=== PATIENT | male | born 1965 | race Caucasian/White ===

== ENCOUNTER 2016-11-19 19:40 | Emergency (ER) | payer SELFPAY ==
[2016-11-19 20:07] VITALS: BP 126/84; PULSE 72; RESP 16; TEMP 98.6; O2SAT 99; BMI 28.1
--- NOTE | 2016-11-19 20:31 | ED PDOC ---
Arrival/HPI - General Chief Complaint: Lower Extremity Problem/Injury Time Seen by Provider: 11/19/16 19:53 Historian: Patient - History of Present Illness Narrative History of Present Illness (Text): 11/19/16 20:30 51yr old male presents today with a one-day history of right fourth toe pain. Patient states yesterday he was walking and he hit his foot into the wall sustaining an injury to the right fourth toe. Patient states he has pain if he tries to apply pressure onto the toe. He is complaining of pain with range of motion of the foot. No medications have been taken for pain at home. Denies numbness weakness or tingling in the extremity. No other complaints Time/Duration: Other (1 day) Symptom Onset: Sudden Symptom Course: Unchanged Quality: Aching Severity Level: 5 Past Medical History - Provider Review Nursing Documentation Reviewed: Yes - Travel History Have you recently traveled outside [place] w/in the past 3 mons?: No - Past History Past History: No Previous - Infectious Disease Hx of Infectious Diseases: None - Tetanus Immunization Tetanus Immunization: Unknown - Cardiac Hx Cardiac Disorders: No - Pulmonary Hx Respiratory Disorders: No - Neurological Hx Neurological Disorder: No - HEENT Hx HEENT Disorder: No - Renal Hx Renal Disorder: No - Endocrine/Metabolic Hx Diabetes Mellitus Type 2: Yes - Hematological/Oncological Hx Blood Disorders: No - Integumentary Hx Dermatological Disorder: No - Musculoskeletal/Rheumatological Hx Musculoskeletal Disorders: No - Gastrointestinal Hx Gastrointestinal Disorders: No - Genitourinary/Gynecological Hx Genitourinary Disorders: No - Psychiatric Hx Depression: No Hx Emotional Abuse: No Hx Physical Abuse: No Hx Substance Use: No - Anesthesia Hx Anesthesia: No - Suicidal Assessment Feels Threatened In Home Enviroment: No Family/Social History - Physician Review Nursing Documentation Reviewed: Yes Family/Social History: Unknown Family HX Smoking Status: Never Smoked Hx Alcohol Use: No Hx Substance Use: No Hx Substance Use Treatment: No Allergies/Home Meds Allergies/Adverse Reactions: Allergies No Known Allergies Allergy (Verified 05/28/13 09:21) Home Medications: Home Meds Medication Instructions Recorded Confirmed metFORMIN [glucOPHAGE] 500 mg PO BID 11/19/16 11/19/16 Review of Systems - Review of Systems Constitutional: absent: Fatigue, Fevers Respiratory: absent: SOB, Cough Cardiovascular: absent: Chest Pain, Palpitations Gastrointestinal: absent: Abdominal Pain, Nausea, Vomiting Musculoskeletal: Arthralgias. absent: Back Pain, Neck Pain Skin: absent: Rash, Pruritis Neurological: absent: Headache, Dizziness Physical Exam Vital Signs Reviewed: Yes Vital Signs Temp Pulse Resp BP Pulse Ox 11/19/16 20:01 98.6 F 72 16 126/84 99 Temperature: Afebrile Blood Pressure: Normal Pulse: Regular Respiratory Rate: Normal Appearance: Positive for: Well-Appearing, Non-Toxic, Comfortable Pain Distress: None Mental Status: Positive for: Alert and Oriented X 3 Finger Stick Blood Glucose: 107 - Systems Exam Head: Present: Atraumatic Neck: Present: Normal Range of Motion Respiratory/Chest: Present: Clear to Auscultation, Good Air Exchange. No: Respiratory Distress, Accessory Muscle Use Cardiovascular: Present: Regular Rate and Rhythm, Normal S1, S2. No: Murmurs Lower Extremity: Present: Tenderness (right foot; + ttp over 4th toe; + minimal edema, no erythema; no ecchymosis; limited rom of toe with pain; sensation and distal pulses intact; cap refill <2. ), Swelling, Neurovascularly Intact, Capillary Refill < 2 s. No: Normal ROM, Erythema, Deformity Skin: Present: Warm, Dry Psychiatric: Present: Alert, Oriented x 3 Medical Decision Making ED Course and Treatment: 11/19/16 20:35 Patient is nontoxic well-appearing in no distress her vital signs are stable. XRAY TOE; + fx 4th toe proximal phalanx TEVIN TAPE TOE I discussed all results in depth with the patient and advised follow-up with the primary care physician/orthopedist within the next 2 days. I advised immediate return if symptoms worsen or persist or if new concerning symptoms develop. IMPRESSION; FRACTURE, TOE Motrin every 6 hours as needed for pain tramadol; one tablet or 6 hours as needed for moderate to severe pain: May cause drowsiness Follow up with primary care physician within the next 2 days Follow up with the orthopedist/assistant tennis coach within the next 2 days Return if symptoms worsen persist or if new symptoms develop - RAD Interpretation Radiology Orders: 11/19/16 20:07 FOOT RIGHT 4TH DIGIT (TOE) [RAD] Stat - Medication Orders Current Medication Orders: Discontinued Medications Ibuprofen (Motrin Tab) 600 mg PO STAT STA Stop: 11/19/16 20:09 Last Admin: 11/19/16 20:11 Dose: 600 mg Disposition/Present on Arrival - Present on Arrival Any Indicators Present on Arrival: No History of DVT/PE: No History of Uncontrolled Diabetes: No Urinary Catheter: No History of Decub. Ulcer: No History Surgical Site Infection Following: None - Disposition Have Diagnosis and Disposition been Completed?: Yes Diagnosis: Fractured toe Disposition: HOME/ ROUTINE Disposition Time: 21:12 Patient Plan: Discharge Condition: GOOD Discharge Instructions (ExitCare): Toe Fracture (ED) Additional Instructions: Motrin every 6 hours as needed for pain tramadol; one tablet or 6 hours as needed for moderate to severe pain: May cause drowsiness Follow up with primary care physician within the next 2 days Follow up with the orthopedist/assistant tennis coach within the next 2 days Return if symptoms worsen persist or if new symptoms develop Prescriptions: Ibuprofen [Motrin] 600 mg PO Q6H PRN #20 tab PRN Reason: pain/fever reduction traMADol [Ultram] 50 mg PO Q6H PRN #8 tab PRN Reason: moderate to severe pain Referrals: Radha Trujillo MD [Primary Care Provider] - Follow up with primary Ozzie Jimenez DPM [Staff Provider] - Follow up with primary Sam Escobar DO [Staff Provider] - Follow up with primary
--- NOTE | 2016-11-20 10:06 | RAD ---
PROCEDURE: Right 4th toe 11/19/2016 HISTORY: jammed right 4th toe COMPARISON: No prior study available comparison TECHNIQUE: Three-view cone-down views of the right 4th toe performed FINDINGS: Current study reveals a diagonal minimally displaced fracture traversing the shaft of the proximal phalanx 4th toe. Surrounding soft tissue swelling. No other fractures are identified. The there may be hammertoe deformities of the 2nd through 4th digits. IMPRESSION: Diagonal/oblique fracture traversing the proximal phalanx 4th toe right foot note this report was placed in PA review folder for followup
== END 2016-11-19 21:28 | disposition home or self-care (01) ==
LOC: ED 19:40
DX: S92.511A Displaced fracture of proximal phalanx of right lesser toe(s), initial encounter for closed fracture (principal); W22.01XA Walked into wall, initial encounter; Y93.01 Activity, walking, marching and hiking; Y92.9 Unspecified place or not applicable

== ENCOUNTER 2018-02-17 10:19 | Emergency (ER) | payer OTHER ==
--- NOTE | 2018-02-17 10:56 | ED PDOC ---
Arrival/HPI - General Time Seen by Provider: 02/17/18 10:41 Historian: Patient - History of Present Illness Narrative History of Present Illness (Text): 02/17/18 10:55 52 y/o M with no significant past medical history presenting to the Emergency Department complaining of left elbow pain and stiffness ongoing for 1 week. 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 Patient denies any fever, chills, chest pain, shortness of breath, nausea, vomiting, diarrhea, back pain, neck pain, headache, dizziness, or any other complaints. Time/Duration: 1 week Symptom Onset: Gradual Symptom Course: Unchanged Activities at Onset: Light Context: Home Past Medical History - Provider Review Nursing Documentation Reviewed: Yes - Past History Past History: No Previous - Infectious Disease Hx of Infectious Diseases: None - Tetanus Immunization Tetanus Immunization: Unknown - Cardiac Hx Cardiac Disorders: No - Pulmonary Hx Respiratory Disorders: No - Neurological Hx Neurological Disorder: No - HEENT Hx HEENT Disorder: No - Renal Hx Renal Disorder: No - Endocrine/Metabolic Hx Diabetes Mellitus Type 2: Yes - Hematological/Oncological Hx Blood Disorders: No - Integumentary Hx Dermatological Disorder: No - Musculoskeletal/Rheumatological Hx Musculoskeletal Disorders: No - Gastrointestinal Hx Gastrointestinal Disorders: No - Genitourinary/Gynecological Hx Genitourinary Disorders: No - Psychiatric Hx Depression: No Hx Emotional Abuse: No Hx Physical Abuse: No Hx Substance Use: No - Anesthesia Hx Anesthesia: No - Suicidal Assessment Feels Threatened In Home Enviroment: No Family/Social History - Physician Review Nursing Documentation Reviewed: Yes Family/Social History: Unknown Family HX Smoking Status: Never Smoked Hx Alcohol Use: No Hx Substance Use: No Hx Substance Use Treatment: No Allergies/Home Meds Allergies/Adverse Reactions: Allergies No Known Allergies Allergy (Verified 02/17/18 10:51) Home Medications: Home Meds Medication Instructions Recorded Confirmed metFORMIN [glucOPHAGE] 500 mg PO BID 11/19/16 02/17/18 Review of Systems - Physician Review All systems were reviewed & negative as marked: Yes - Review of Systems Constitutional: Normal Eyes: Normal ENT: Normal Respiratory: Normal. absent: SOB, Cough Cardiovascular: Normal. absent: Chest Pain Gastrointestinal: Normal. absent: Abdominal Pain, Diarrhea, Nausea, Vomiting Genitourinary Male: Normal. absent: Dysuria, Frequency Musculoskeletal: Other (left elbow pain and stiffness). absent: Back Pain, Neck Pain Skin: Normal. absent: Rash Neurological: Normal. absent: Headache, Dizziness Endocrine: Normal Hemo/Lymphatic: Normal Psychiatric: Normal Physical Exam Temperature: Afebrile Blood Pressure: Normal Pulse: Regular Respiratory Rate: Normal Appearance: Positive for: Well-Appearing, Non-Toxic, Comfortable Pain Distress: Mild Mental Status: Positive for: Alert and Oriented X 3 - Systems Exam Head: Present: Atraumatic, Normocephalic Pupils: Present: PERRL Extroacular Muscles: Present: EOMI Conjunctiva: Present: Normal Mouth: Present: Moist Mucous Membranes Neck: Present: Normal Range of Motion Respiratory/Chest: Present: Clear to Auscultation, Good Air Exchange. No: Respiratory Distress, Accessory Muscle Use Cardiovascular: Present: Regular Rate and Rhythm, Normal S1, S2. No: Murmurs Abdomen: No: Tenderness, Distention, Peritoneal Signs Back: Present: Normal Inspection Upper Extremity: Present: NORMAL PULSES, Swelling (medial surface of left elbow), Capillary Refill < 2s. No: Cyanosis, Edema Lower Extremity: Present: Normal Inspection. No: Edema Neurological: Present: GCS=15, CN II-XII Intact, Speech Normal Skin: Present: Warm, Dry, Normal Color. No: Rashes Psychiatric: Present: Alert, Oriented x 3, Normal Insight, Normal Concentration Medical Decision Making ED Course and Treatment: 02/17/18 10:57 Impression: 52 year old male presents to the Emergency department complaining of left elbow pain and stiffness. Plan: -- Xray left elbow -- Ibuprofen -- Reassess and disposition Progress Notes: 02/18/18 13:02 Elbow XR reviewed with no posterior or anterior fat pat seen on imaging. Patient updated on details and advised to continue supportive management at home. He will refrain from lifting heavy items for the next couple of days. Scripts provided. Referral to clinic given. He is stable for discharge. - Scribe Statement The provider has reviewed the documentation as recorded by the Scribabraham Bolton All medical record entries made by the Scribe were at my direction and personally dictated by me. I have reviewed the chart and agree that the record accurately reflects my personal performance of the history, physical exam, medical decision making, and the department course for this patient. I have also personally directed, reviewed, and agree with the discharge instructions and disposition. Disposition/Present on Arrival - Present on Arrival Any Indicators Present on Arrival: No History of DVT/PE: No History of Uncontrolled Diabetes: No Urinary Catheter: No History Surgical Site Infection Following: None - Disposition Have Diagnosis and Disposition been Completed?: Yes Diagnosis: Elbow contusion Disposition: HOME/ ROUTINE Disposition Time: 13:02 Condition: STABLE Discharge Instructions (ExitCare): Contusion (DC) Prescriptions: Ibuprofen [Motrin Tab] 600 mg PO Q6H PRN 6 Days #24 tab PRN Reason: Pain, Moderate (4-7) Referrals: Radha Trujillo MD [Primary Care Provider] - Follow up with primary Forms: WORK NOTE
[2018-02-17 10:59] VITALS: RESP 18; BMI 28.8
[2018-02-17 13:13] VITALS: BP 129/86; PULSE 88; TEMP 98; O2SAT 99
--- NOTE | 2018-02-17 15:10 | RAD ---
Date of service: 02/17/2018 PROCEDURE: Radiographs of the left elbow. HISTORY: L elbow pain and swelling COMPARISON: No prior. FINDINGS: BONES: Normal. No fracture. JOINTS: Normal. No osteoarthritis. SOFT TISSUES: Normal. JOINT EFFUSION: None. OTHER FINDINGS: None IMPRESSION: Unremarkable radiographs of the left elbow.
== END 2018-02-17 13:15 | disposition home or self-care (01) ==
LOC: ED 10:19
DX: S50.02XA Contusion of left elbow, initial encounter (principal); X50.9XXA Other and unspecified overexertion or strenuous movements or postures, initial encounter; Y92.89 Other specified places as the place of occurrence of the external cause; Y99.8 Other external cause status